=== PATIENT | female | born 1945 | race Caucasian/White ===

== ENCOUNTER 2023-09-02 13:04 | Outpatient (CLI) | payer OTHER, MEDICARE | END 2023-09-02 13:05 | disposition home or self-care (01) | LOC: CSHWCC 13:04 | PROVIDERS: ATTEND Nurse Practitioner Family | DX: T81.31XD Disruption of external operation (surgical) wound, not elsewhere classified, subsequent encounter (principal) | CPT/HCPCS: 99213; G0463 ==